=== PATIENT | female | born 1995 | race Caucasian/White ===

== ENCOUNTER 2016-08-30 05:32 | Emergency (ER) | payer SELFPAY ==
[2016-08-30 05:56] VITALS: BP 149/87
[2016-08-30] MEDS ORDERED: Ketorolac 30 MG/ML SDV IVPUSH ONE (06:03)
[2016-08-30] MEDS ORDERED: Sodium Chloride 0.9% 10 ML Syringe FLUSH PRN (06:03)
[2016-08-30] MEDS ORDERED: Metoclopramide 10 MG/2 ML SDV IV ONE (06:04)
[2016-08-30] MEDS ORDERED: diphenhydrAMINE 50 MG/ML SDV IVPUSH ONE (06:05)
--- NOTE | 2016-08-30 06:11 | EDM.PDOC ---
ED HPI GENERAL MEDICAL PROBLEM - General Chief Complaint: Headache Stated Complaint: HEAD HURT Time Seen by Provider: 08/30/16 05:50 Source of Information: Reports: Patient History Limitations: Reports: No Limitations - History of Present Illness INITIAL COMMENTS - FREE TEXT/NARRATIVE: c/o migraine not slept x 2d, taking Unisom as only meds, had onset of PAIGE over 6h ago before midnight, sharp pain in middle of forehead, feels like sharp object being pushed through her skull, not taken pain meds at home h/o migraines. last occurrence 2y ago - Related Data Allergies Allergy/AdvReac Type Severity Reaction Status Date / Time hydrocodone Allergy Nausea and Verified 08/30/16 05:46 Vomiting Home Meds: Home Meds Control Pill 1 tab PO DAILY 01/25/15 [History] Past Medical History - Past Health History Medical/Surgical History: Denies Medical/Surgical History Psychiatric History: Reports: Depression Social & Family History - Tobacco Use Smoking Status *Q: Never Smoker Years of Tobacco use: 6 Packs/Tins Daily: 1 Second Hand Smoke Exposure: Yes - Caffeine Use Caffeine Use: Reports: Coffee, Energy Drinks, Soda - Recreational Drug Use Recreational Drug Use: No Recreational Drug Type: Reports: Marijuana/Hashish ED ROS GENERAL - Review of Systems Review Of Systems: See Below Constitutional: Reports: No Symptoms HEENT: Reports: No Symptoms Respiratory: Reports: No Symptoms Cardiovascular: Reports: No Symptoms Endocrine: Reports: No Symptoms GI/Abdominal: Reports: No Symptoms : Reports: No Symptoms Musculoskeletal: Reports: No Symptoms Skin: Reports: No Symptoms Neurological: Reports: Headache Psychiatric: Reports: No Symptoms Hematologic/Lymphatic: Reports: No Symptoms Immunologic: Reports: No Symptoms - Physical Exam Exam: See Below Exam Limited By: Other (tearful, holding top of head in dark room, asking for door to be kept shut to keep out light) General Appearance: Alert, WD/WN, Moderate Distress Head Exam: Atraumatic, Normocephalic Neck: Normal Inspection, Supple, Non-Tender Respiratory/Chest: No Respiratory Distress, Lungs Clear, Normal Breath Sounds, No Accessory Muscle Use, Chest Non-Tender Cardiovascular: Regular Rate, Rhythm, No Edema, No Gallop, No Murmur, No Rub GI/Abdominal: Soft, Non-Tender, No Distention Neuro Exam (Abbreviated): Alert, Oriented, CN II-XII Intact, No Motor/Sensory Deficits Back Exam: Normal Inspection Extremities: Normal Inspection, Normal Range of Motion, Non-Tender, No Pedal Edema Psychiatric: Tearful Skin Exam: Warm, Dry, Intact, Normal Color, No Rash Course - Vital Signs Last Recorded V/S: Last Vital Signs Temp 36.6 C 08/30/16 05:48 Pulse 81 08/30/16 05:48 Resp 22 H 08/30/16 05:48 BP 149/87 H 08/30/16 05:48 Pulse Ox 99 08/30/16 05:48 - Orders/Labs/Meds Orders: Active Orders 24 hr Category Date Time Status Sodium Chloride 0.9% [Saline Flush] Med 08/30/16 06:03 Ordered 10 ml FLUSH ASDIRECTED PRN Saline Lock Insert [OM.PC] Routine Oth 08/30/16 06:03 Ordered Medication Orders Sodium Chloride (Saline Flush) 10 ml FLUSH ASDIRECTED PRN PRN Reason: Keep Vein Open Last Admin: 08/30/16 06:35 Dose: 10 ml Meds: Medications Generic Name Dose Route Start Last Admin Trade Name Freq PRN Reason Stop Dose Admin Sodium Chloride 10 ml 08/30/16 06:03 08/30/16 06:35 Saline Flush FLUSH 10 ml ASDIRECTED PRN Administration Keep Vein Open Discontinued Medications Generic Name Dose Route Start Last Admin Trade Name Freq PRN Reason Stop Dose Admin Diphenhydramine HCl 50 mg 08/30/16 06:05 08/30/16 06:30 Benadryl IVPUSH 08/30/16 06:06 50 mg ONETIME ONE Administration Ketorolac Tromethamine 30 mg 08/30/16 06:03 08/30/16 06:30 Toradol IVPUSH 08/30/16 06:04 30 mg ONETIME ONE Administration Metoclopramide HCl 10 mg 08/30/16 06:04 08/30/16 06:30 Reglan IV 08/30/16 06:05 10 mg ONETIME ONE Administration - Re-Assessments/Exams Free Text/Narrative Re-Assessment/Exam: 08/30/16 06:57 sleeping, PAIGE now gone, no nausea Departure - Departure Time of Disposition: 06:57 Disposition: Home, Self-Care 01 Condition: Good Clinical Impression: Migraine - Discharge Information Forms: ED Department Discharge Additional Instructions: Rest today. To help break pain cycle, take ibuprofen 200 mg 3 tabs 4 times a day today. Use ice to forehead for 10-15 minutes every 2 hours as needed. See your doctor in 4 days. Return to ED if you are feeling worse. Call your Physician or Return to Emergency Department if: * Your condition worsens in any way. * You develop fever greater than 100.4. * You have vomitting that does not stop with medications. * You have pain that is not controlled with medications. - My Orders Last 24 Hours: My Active Orders 08/30/16 06:03 Sodium Chloride 0.9% [Saline Flush] 10 ml FLUSH ASDIRECTED PRN Saline Lock Insert [OM.PC] Routine - Assessment/Plan Last 24 Hours: My Active Orders 08/30/16 06:03 Sodium Chloride 0.9% [Saline Flush] 10 ml FLUSH ASDIRECTED PRN Saline Lock Insert [OM.PC] Routine
== END 2016-08-30 07:10 | disposition home or self-care (01) ==
LOC: FB.ED 05:32
DX: G43.909 Migraine, unspecified, not intractable, without status migrainosus (principal); Z88.5 Allergy status to narcotic agent
CPT/HCPCS: 96374; 96375; 99283; J1200; J1885; J2765; J7050